=== PATIENT | male | born 1980 | race Caucasian/White ===

== ENCOUNTER → 2017-06-15 09:38 | Outpatient (CLI) | payer OTHER ==
--- NOTE | 2017-06-18 09:53 | EC ---
PATIENT:HUNG FERRO DATE OF SERVICE: 06/15/17 SEX: M MEDICAL RECORD: [id number] DATE OF : [birth year] LOCATION:[facility] AGE OF PATIENT: 36 ADMISSION DATE: 06/15/17 REFERRING PHYSICIAN: INTERPRETING PHYSICIAN: YARELI LANDA MD ECHOCARDIOGRAM REPORT ECHO CHARGES 4 ECHO COMPLETE CLINICAL DIAGNOSIS: HTN,CHEST PAIN/DYSPNEA ECHOCARDIOGRAPHIC MEASUREMENTS (adult normal given) AC root (d.<3.7cm) 3.4 cm LV Septum d (<1.2 cm> 1.1 cm Valve Excursion 1.4 cm LV Septum (systole) 1.3 cm Left Atria (s.<4.0cm> 4.0 cm LVPW d(<1.2cm) 1.2 cm RV (d.<2.3cm) 3.1 cm LVPW (sytole) 1.3 cm LV diastole(<5.6CM) 5.6 cm MV E-F(>70mm/sec) cm LV systole 4.0 cm LVOT Diameter 2.0 cm MV exc.(>10mm) 1.4 cm Est.ejection fraction (50-75%) % Pericardial Effusion N DOPPLER: LVIT cm/sec A 55.0 cm/sec E 79.0 cm/sec LA cm/sec RVSP 23 mmHg LVOT 130 cm/sec AOP1/2T m/s Asc. Ao 147 cm/sec RVOT 67 cm/sec RA cm/sec PA 144 cm/sec AV Gradient Peak 8.59 mmHg AV Mean 4.31 mmHg AV Area 2.6 cm MV Gradient Peak 4.67 mmHg MV Mean 1.44 mmHg MV Area cm COMMENTS: Film Cleaner: 2 HAMZAH WALTER Tumbling Machine Operator: 4 Dr. Landa TAPE# PACS DATE OF SERVICE: 06/15/2017 TRANSTHORACIC ECHOCARDIOGRAM FINDINGS: 1. Left ventricle is normal size, normal function with normal inflow characteristics. No evidence of diastolic dysfunction, ejection fraction of 65%. 2. Mitral valve difficult to visualize, but grossly normal. No evidence of significant mitral regurgitation. ECHOCARDIOGRAM REPORT [id number] HUNG FERRO 3. Tricuspid valve is normal size, normal function. Normal right ventricular systolic pressures. 4. The pericardium is normal. There is no pericardial effusion. 5. The pulmonic valve is normal. 6. The right atrium and the right ventricle is normal size, normal function. 7. The aortic valve is normal. CONCLUSIONS: The patient has normal echocardiogram. TRANSINT:[id number] Voice Confirmation ID: [id number] DOCUMENT ID: [id number] YARELI LANDA MD at 0953 CC: [id number] DICTATION DATE: 06/15/17 1243 WEB PAGE DESIGNER: 06/15/17 1308 DEP CLI 06/15/17 [id number] [place] [address]
== END | disposition home or self-care (01) ==
LOC: D.ECHO 06-13 10:35
DX: I10 Essential (primary) hypertension (principal); R07.9 Chest pain, unspecified; R06.00 Dyspnea, unspecified